=== PATIENT | male | born 1950 | race African-American/Black ===

== ENCOUNTER 2021-11-30 13:55 | Inpatient (IN) | payer MEDICARE, OTHER ==
[~2021-11-30] VITALS: Ht 180.3 cm; Wt 63.9 kg
[2021-11-30] MEDS ORDERED: IPRA4AER IH ×2 (14:11)
[2021-11-30] MEDS ORDERED: DAPA10TA PO (14:11)
[2021-11-30] MEDS ORDERED: OXYC10TA59 PO (14:11)
[2021-11-30] MEDS ORDERED: FURO40 PO (14:11)
[2021-11-30] MEDS ORDERED: GABA-1216 PO (14:11)
[2021-11-30] MEDS ORDERED: UMEC1DIS IH (14:11)
[2021-11-30] MEDS ORDERED: POTA8TAB72 PO (14:11)
[2021-11-30] MEDS ORDERED: TAMS-13 PO (14:11)
[2021-11-30] MEDS ORDERED: ATOR20TA86 PO (14:11)
[2021-11-30] MEDS ORDERED: IVAB7.5T PO (14:11)
[2021-11-30] MEDS ORDERED: METO25 PO (14:11)
[2021-11-30] MEDS ORDERED: DIGO125T84 PO (14:11)
[2021-11-30] MEDS ORDERED: MORP60TA49 PO (14:11)
[2021-11-30] MEDS ORDERED: APIX5TAB PO (14:11)
[2021-11-30] MEDS ORDERED: POTA-206 PO (14:14)
[2021-11-30] MEDS ORDERED: OXYC10TA92 PO (14:14)
[2021-11-30 16:54] LABS: BASOPHILS % (AUTO) 0.4 % (0.0-2.0); EOSINOPHILS % (AUTO) 0.2 % (1.0-6.0); LYMPHOCYTES # (AUTO) 0.5 K/uL (1.0-4.8); LYMPHOCYTES % (AUTO) 6.7 % (22.0-44.0); MEAN CORPUSCULAR HEMOGLOBIN 26.4 pg (26.0-34.0); MEAN CORPUSCULAR HGB CONC 32.1 G/dL (31.0-37.0); MEAN CORPUSCULAR VOLUME 82 fL (80-100); MONOCYTES # (AUTO) 0.7 K/uL (0.1-1.0); MONOCYTES % (AUTO) 8.3 % (2.0-9.0); NEUTROPHILS # (AUTO) 6.8 K/uL (1.8-7.7); NEUTROPHILS % (AUTO) 84.4 % (40.0-70.0); PLATELET COUNT (AUTO) 442 K/uL (150-450); RED BLOOD CELL COUNT(AUTO) 3.04 MIL/uL (4.50-5.90); RED CELL DISTRIBUTION WIDTH 16.5 % (11.5-14.5)
[2021-11-30 17:06] LABS: CALCIUM, TOTAL 9.3 mg/dL (8.8-10.5); CREATININE 1.74 mg/dL (0.60-1.30); POTASSIUM 5.2 mmol/L (3.5-5.1)
[2021-11-30 17:11] LABS: APPEARANCE,URINE TURBID (CLEAR); BILIRUBIN,URINE NEGATIVE (NEGATIVE); GLUCOSE, URINE (UA) 300-500 mg/dL (NEGATIVE); KETONES,URINE NEGATIVE (NEGATIVE); LEUKOCYTE ESTERASE ,URINE TRACE (NEGATIVE); NITRATE,URINE NEGATIVE (NEGATIVE); OCCULT BLOOD,URINE LARGE (NEGATIVE); PH,URINE 5.5 (5.0-8.0); PROTEIN,URINE 300-600,SEE CONFIRM mg/dL (NEGATIVE); SPECIFIC GRAVITIY, URINE 1.016 (1.003-1.030); UROBILINOGEN,URINE <=1.0 mg/dL (<=1.0)
[2021-11-30 17:12] LABS: ALBUMIN 2.6 g/dL (3.4-5.0); BILIRUBIN,TOTAL 0.7 mg/dL (0.1-1.0); TOTAL PROTEIN, SERUM 8.2 g/dL (6.4-8.2)
[2021-11-30 17:18] LABS: INR 1.3 (0.9-1.1); PROTHROMBIN TIME 13.4 SEC (9.4-11.6)
[2021-11-30 17:25] LABS: RBC,URINE >100 /HPF (0-2); SULFOSALICYLIC ACID,URINE 2+ (Negative)
[2021-11-30 17:26] LABS: AMORPHOUS SEDIMENT,UR Rare /LPF (None Seen); BACTERIA,URINE Rare /HPF (None Seen); FINE GRANULAR CASTS,URINE 0-2 /LPF (None Seen); SQUAMOUS EPITHELIAL CELL,UR Moderate /LPF (None Seen)
[2021-11-30] MEDS ORDERED: MAGNESIUM CITRATE 300 ML ORAL SOLUTION PO ONE (18:45)
[2021-11-30] MEDS ORDERED: SODIUM PHOS/SODIUM BIPHOS 133 ML ENEMA PR ONE (18:45)
[2021-11-30] MEDS ORDERED: ONDANSETRON HCL 4 MG/2 ML VIAL IVP PRN (20:45)
[2021-11-30] MEDS ORDERED: ACETAMINOPHEN 325 MG TABLET PO PRN (20:45)
[2021-11-30] MEDS ORDERED: 0.9% SODIUM CHLORIDE 10 ML SYRINGE IVP PRN (20:45)
[2021-11-30 22:03] VITALS: BP 107/75
[2021-12-01 04:30] VITALS: BP 104/62
[2021-12-01 08:43] VITALS: BP 115/74
[2021-12-01 08:50] LABS: CALCIUM, TOTAL 8.7 mg/dL (8.8-10.5); CREATININE 1.41 mg/dL (0.60-1.30); POTASSIUM 4.8 mmol/L (3.5-5.1)
[2021-12-01] MEDS: PANTOPRAZOLE SODIUM 40 MG/VIAL IVP SCH (09:30)
[2021-12-01 15:51] VITALS: BP 107/68
[2021-12-01] MEDS ORDERED: HYDROCODONE/ACETAMINOPHEN 5-325 MG TABLET PO PRN (18:00)
[2021-12-01] MEDS: HYDROCODONE/ACETAMINOPHEN 5-325 MG TABLET PO PRN (18:09)
[2021-12-01 20:00] VITALS: BP 83/51
[2021-12-01 20:48] VITALS: BP 84/53
[2021-12-01] MEDS: METOPROLOL TARTRATE 25 MG TABLET PO SCH (21:00)
[2021-12-01] MEDS ORDERED: SODIUM CHLORIDE 0.9% 1,000 ML IV ONE (21:15)
[2021-12-01] MEDS: TAMSULOSIN HCL 0.4 MG CAPSULE PO SCH (21:28)
[2021-12-01] MEDS: APIXABAN 5 MG TABLET PO SCH (21:28)
[2021-12-02 00:12] VITALS: BP 107/67
[2021-12-02] MEDS: HYDROCODONE/ACETAMINOPHEN 5-325 MG TABLET PO PRN ×3 (00:17→18:39)
[2021-12-02 04:00] VITALS: BP 94/53
[2021-12-02 08:16] VITALS: BP 90/44
[2021-12-02] MEDS: PANTOPRAZOLE SODIUM 40 MG/VIAL IVP SCH (08:55)
[2021-12-02] MEDS: APIXABAN 5 MG TABLET PO SCH ×2 (08:55→22:39)
[2021-12-02] MEDS: METOPROLOL TARTRATE 25 MG TABLET PO SCH ×2 (08:56→21:00)
[2021-12-02 10:52] LABS: BASOPHILS % (AUTO) 0.5 % (0.0-2.0); EOSINOPHILS % (AUTO) 1.6 % (1.0-6.0); HEMATOCRIT 21.6 % (41-53); HEMOGLOBIN 7.1 g/dL (13.5-17.5); LYMPHOCYTES # (AUTO) 0.5 K/uL (1.0-4.8); LYMPHOCYTES % (AUTO) 8.9 % (22.0-44.0); MEAN CORPUSCULAR HEMOGLOBIN 26.6 pg (26.0-34.0); MEAN CORPUSCULAR HGB CONC 32.7 G/dL (31.0-37.0); MEAN CORPUSCULAR VOLUME 82 fL (80-100); MONOCYTES # (AUTO) 0.5 K/uL (0.1-1.0); MONOCYTES % (AUTO) 8.5 % (2.0-9.0); NEUTROPHILS # (AUTO) 4.7 K/uL (1.8-7.7); NEUTROPHILS % (AUTO) 80.5 % (40.0-70.0); PLATELET COUNT (AUTO) 373 K/uL (150-450); RED BLOOD CELL COUNT(AUTO) 2.65 MIL/uL (4.50-5.90); RED CELL DISTRIBUTION WIDTH 16.4 % (11.5-14.5)
[2021-12-02 11:01] LABS: ANION GAP 9 mmol/L (8-16); CALCIUM, TOTAL 8.7 mg/dL (8.8-10.5); CARBON DIOXIDE 22 mmol/L (22-29); CHLORIDE 104 mmol/L (98-107); CREATININE 1.22 mg/dL (0.60-1.30); GLUCOSE,RANDOM 123 mg/dL (70-110); POTASSIUM 4.4 mmol/L (3.5-5.1); SODIUM SERUM 135 mmol/L (136-145); UREA NITROGEN, BLOOD 27 mg/dL (7-18)
[2021-12-02 11:03] LABS: GLOMERULAR FILTR. RATE CALC > 60 mL/min (>60)
[2021-12-02 16:41] VITALS: BP 111/56
[2021-12-02 20:41] VITALS: BP 99/58
[2021-12-02] MEDS: TAMSULOSIN HCL 0.4 MG CAPSULE PO SCH (22:40)
[2021-12-03 01:31] VITALS: BP 106/55
[2021-12-03] MEDS: HYDROCODONE/ACETAMINOPHEN 5-325 MG TABLET PO PRN ×2 (01:31→09:35)
[2021-12-03 04:33] VITALS: BP 111/54
[2021-12-03 08:15] VITALS: BP 116/61
[2021-12-03] MEDS: METOPROLOL TARTRATE 25 MG TABLET PO SCH (09:00)
[2021-12-03] MEDS: PANTOPRAZOLE SODIUM 40 MG/VIAL IVP SCH (09:35)
[2021-12-03] MEDS: APIXABAN 5 MG TABLET PO SCH (09:35)
[2021-12-03] MEDS ORDERED: PANT-31 PO (14:43)
[2021-12-03] MEDS ORDERED: HYDR-4723 PO (14:44)
== END 2021-12-03 15:02 | DRG 682 ==
LOC: EMS 14:08 → 6S 21:07
PROVIDERS: ADMIT Hospitalist; ATTEND Hospitalist
DX: N17.9 Acute kidney failure, unspecified (principal); E43 Unspecified severe protein-calorie malnutrition; E87.1 Hypo-osmolality and hyponatremia; Z68.1 Body mass index [BMI] 19.9 or less, adult; E86.0 Dehydration; D64.9 Anemia, unspecified; C61 Malignant neoplasm of prostate; E78.00 Pure hypercholesterolemia, unspecified; I25.5 Ischemic cardiomyopathy; D63.8 Anemia in other chronic diseases classified elsewhere; I48.0 Paroxysmal atrial fibrillation; R26.2 Difficulty in walking, not elsewhere classified; Z85.46 Personal history of malignant neoplasm of prostate; Z79.899 Other long term (current) drug therapy; Z79.891 Long term (current) use of opiate analgesic; Z79.01 Long term (current) use of anticoagulants; Z59.00 Homelessness unspecified; Z63.8 Other specified problems related to primary support group; Z90.49 Acquired absence of other specified parts of digestive tract
CPT/HCPCS: 71045; 74176; 80048; 80053; 81001; 81002; 83690; 84484; 85025; 85610; 85730; 93005; 93306; 97162; 99285; C9113; J2405; J7030; 36415-L1; 36415-TC